=== PATIENT | female | born 1960 | race Caucasian/White ===

== ENCOUNTER 2021-04-21 11:24 | Emergency (ER) | payer BC, OTHER ==
--- NOTE | 2021-04-21 11:30 | ERPHSYRPT ---
- History of Present Illness Time Seen by Provider: 04/21/21 11:30 Source: patient Exam Limitations: no limitations Physician History: This is a 60-year-old white female with chronic poor dentition who presents with left lower molar dental infection and associated swelling of left jaw. Patient states that she received amoxicillin 500 mg 3 times a day prescription from a dentist office. She has taken 2 full days of that antibiotic. The swelling has improved per her report. However she still feels that there is still some mild difficulty swallowing. Patient contacted the dentist office and they told her to come the emergency room to receive a dose of intravenous antibiotics. Patient states that she drove herself but she states that she can get a ride home. Patient denies fever and chills Severity: mild ENT Location: dental (Mild to moderate) Prearrival Treatment: over the counter meds, prescription meds Modifying Factors: Improves With: nothing Associated Symptoms: jaw pain, tooth pain, difficulty swallowing (Mild but improving) Allergies/Adverse Reactions: influenza virus vaccine, specific Allergy (Verified 04/21/21 11:36) NSAIDS (Non-Steroidal Anti-Inflamma Adverse Reaction (Verified 04/21/21 11:36) Home Medications: Amoxicillin 1 ea TID 04/21/21 [History] Hydrocodone/Acetaminophen [Hydrocodone-Acetamin 5-325 mg] 1 ea TID 04/21/21 [History] Levothyroxine Sodium [Synthroid] 1 ea DAILY 04/21/21 [History] Travel Risk - International Travel Have you traveled outside of the country in past 3 weeks: No - Coronavirus Screening Are you exhibiting any of the following symptoms?: No Close contact with a COVID-19 positive Pt in past 14-21 Days: No - Review of Systems Constitutional: No Symptoms Eyes: No Symptoms Ears, Nose, & Throat: No Symptoms, Other (Dental pain and left jaw swelling) Respiratory: No Symptoms Cardiac: No Symptoms Abdominal/Gastrointestinal: No Symptoms Genitourinary Symptoms: No Symptoms Musculoskeletal: No Symptoms Skin: No Symptoms Neurological: No Symptoms Psychological: No Symptoms Endocrine: No Symptoms Hematologic/Lymphatic: No Symptoms Immunological/Allergic: No Symptoms All Other Systems: Reviewed and Negative - Past Medical History Pertinent Past Medical History: Yes - Past Surgical History Past Surgical History: Yes - Nursing Vital Signs Nursing Vital Signs: Initial Vital Signs Temperature 97.3 F 04/21/21 11:31 Pulse Rate 108 H 04/21/21 11:31 Respiratory Rate 18 04/21/21 11:31 Blood Pressure 199/108 04/21/21 11:31 O2 Sat by Pulse Oximetry 96 04/21/21 11:31 Pain Scale Pain Intensity 8 - Physical Exam General Appearance: no apparent distress, alert, anxiety Eye Exam: bilateral eye: normal inspection, PERRL, EOMI Ear Exam: bilateral ear: auricle normal Nasal Exam: normal inspection, No active bleeding Throat Exam: pharynx normal, dental tenderness (Left lower posterior molars. No evidence of abscess present) Neck Exam: normal inspection, non-tender, supple, full range of motion, trachea midline Cardiovascular/Respiratory Exam: chest non-tender, no respiratory distress Abdominal Exam: non-tender Neurologic Exam: alert, oriented x 3, cooperative, energy systems engineer II-XII nml as tested, normal mood/affect, nml cerebellar function, nml station & gait, sensation nml Skin Exam: normal color, warm, dry SpO2 Interpretation: normal O2 Delivery: Room Air - Course Nursing assessment & vital signs reviewed: Yes - Progress Progress: unchanged, pain not gone completely Counseled pt/family regarding: diagnosis, need for follow-up - Departure Departure Disposition: Home Clinical Impression: Pain, dental, Dental infection Condition: Stable Critical Care Time: No Additional Instructions: Take your antibiotics as prescribed. Follow-up with your dentist for further management of your pain and infection and definitive care.
[2021-04-21] MEDS ORDERED: ROCEPHIN 1 Gm-D5w 50 ml Bag** 1 G/50 ML IVPB IV STA (11:58)
[2021-04-21] MEDS ORDERED: Zofran 4 MG/2 ML VIAL IV ONE (11:59)
[2021-04-21] MEDS ORDERED: Hydromorphone 1 mg/ml Injection IV ONE (11:59)
[2021-04-21 12:10] LABS: Absolute Neutrophil Ct (ANC) 6.14 (1.4-6.9); BASOPHIL % 0.2 % (0.0-0.4); Basophil (Absolute #) 0.02 (0-0.4); Eosinophil % 1.5 % (0.00-5.0); Eosinophil (Absolute #) 0.14 (0-0.5); Hematocrit 41.4 % (35-47); Hemoglobin 12.9 gm/dl (12.0-16.0); Lymphocyte (Absolute #) 2.28 (1.0-4.6); Lymphocytes % 24.6 % (24.0-44.0); Mean Corpuscular Hemoglobin 30.2 pg (26-32); Mean Corpuscular Hgb Concent. 31.2 g/dl (32-36); Monocyte (Absolute #) 0.68 (0.0-1.3); Monocytes % 7.3 % (0.0-12.0); Neutrophil % 66.4 % (36.0-66.0); Platelet Count 473 K/mm3 (150-450); Red Blood Count 4.27 M/mm3 (4.1-5.4); Red Cell Distribution Width 13.9 % (11.5-14.0); White Blood Count 9.3 K/mm3 (4.0-10.5)
[2021-04-21 12:19] LABS: BLOOD UREA NITROGEN 23 mg/dL (7-17); CHLORIDE 103 mmol/L (98-107); Calcium 9.4 mg/dL (8.4-10.2); Carbon Dioxide 24 mmol/L (22-30); Creatinine 1 0.83 mg/dL (0.52-1.04); EST GLOMERULAR FILTRATION RATE > 60.0 ML/MIN; Glucose 122 mg/dL (74-106); Potassium 4.2 mmol/L (3.5-5.1); SODIUM 136 mmol/L (137-145)
[2021-04-21] MEDS ORDERED: Hydromorphone 1 mg/ml Injection ONE (12:47)
[2021-04-21] MEDS ORDERED: Zofran 4 MG/2 ML VIAL ONE (12:47)
[2021-04-21] MEDS ORDERED: ROCEPHIN 1 Gm-D5w 50 ml Bag** 1 G/50 ML IVPB IV ONE (12:47)
[2021-04-21 13:53] VITALS: BP 173/107; PULSE 78; O2SAT 97
== END 2021-04-21 14:16 | disposition home or self-care (01) ==
LOC: ED 11:24
DX: K08.89 Other specified disorders of teeth and supporting structures (principal); K04.7 Periapical abscess without sinus
CPT/HCPCS: 36000; 36415; 80048; 85025; 96372; 96374; 96375; 99284; J0696; J1170; J2405